=== PATIENT | female | born 1960 | race Caucasian/White ===

== ENCOUNTER 2023-06-01 21:19 | Inpatient (IN) | payer OTHER ==
[~2023-06-01] VITALS: Ht 170.2 cm; Wt 63.5 kg
[2023-06-01] MEDS ORDERED: METOPROLOL TARTRATE 5 MG/5 ML VIAL IVP ONE ×2 (21:45→21:55)
[2023-06-01] MEDS ORDERED: MAGNESIUM SULFATE 2 GM in IV DEXTROSE 5% 100 ML IV ONE (21:45)
[2023-06-01] MEDS ORDERED: METOPROLOL TARTRATE 50 MG TABLET PO ONE (21:45)
[2023-06-01] MEDS ORDERED: ASPIRIN 81 MG TAB.CHEW PO ONE (21:45)
[2023-06-01] MEDS ORDERED: HYDROMORPHONE 1 MG/1 ML DISP.SYRIN IV ONE ×2 (21:45→22:45)
[2023-06-01] MEDS ORDERED: ONDANSETRON HCL 4 MG TABLET PO ONE (21:45)
[2023-06-01] MEDS ORDERED: NITROGLYCERIN OINT 1 GM PACKET TP ONE ×2 (21:45→21:55)
[2023-06-01] MEDS ORDERED: ONDANSETRON 4 MG/2 ML VIAL ONE (21:54)
[2023-06-01] MEDS ORDERED: ASPIRIN 81 MG TAB.CHEW ONE (21:54)
[2023-06-01] MEDS ORDERED: MAGNESIUM SULFATE/D5W 200 ML ONE (21:55)
[2023-06-01] MEDS ORDERED: METOPROLOL TARTRATE 50 MG TABLET ONE (21:56)
[2023-06-01] MEDS ORDERED: HYDROMORPHONE 1 MG/1 ML DISP.SYRIN ONE ×2 (21:56→23:10)
[2023-06-01 22:03] LABS: BASOPHILS # (AUTO) 0.1 K/UL (0.0-0.2); EOSINOPHILS # (AUTO) 0.2 K/uL (0.0-0.7); EOSINOPHILS % (AUTO) 2.4 % (0.0-7.0); HEMOGLOBIN 10.7 g/dL (10.9-14.3); LYMPHOCYTES # (AUTO) 2.5 K/uL (0.8-4.8); LYMPHOCYTES % (AUTO) 31.4 % (20.5-51.5); MEAN CORPUSCULAR HEMOGLOBIN 29.7 uug (24.7-32.8); MEAN CORPUSCULAR HGB CONC 35 g/dL (32.3-35.6); MEAN CORPUSCULAR VOLUME 85.9 fL (75.5-95.3); MONOCYTES # (AUTO) 0.7 K/uL (0.1-1.30); MONOCYTES % (AUTO) 9.6 % (0.0-11.0); NEUTROPHILS # (AUTO) 4.3 K/uL (1.8-8.9); NEUTROPHILS % (AUTO) 55.6 % (38.5-71.5); PLATELET COUNT (AUTO) 405 K/uL (179-408); RED BLOOD CELL COUNT(AUTO) 3.61 MIL/uL (3.63-4.92); RED CELL DISTRIBUTION WIDTH 14.1 % (12.3-17.7); WHITE BLOOD COUNT (AUTO) 7.8 K/uL (3.8-11.8)
[2023-06-01 22:06] LABS: DIFFERENTIAL COMMENT 1
[2023-06-01 22:10] VITALS: BP 145/73
[2023-06-01 22:11] LABS: CALCIUM 9.2 mg/dL (8.5-10.1); CARBON DIOXIDE 23 mmol/L (21-32); CHLORIDE 101 mmol/L (98-107); CREATININE 1.8 mg/dL (0.6-1.3); GLUCOSE 355 mg/dL (74-106); POTASSIUM 4.6 mmol/L (3.5-5.1); SODIUM SERUM 134 mmol/L (136-145); UREA NITROGEN, BLOOD 35 mg/dL (7-18)
[2023-06-01 23:01] LABS: ALANINE AMINOTRANSFERASE 10 U/L (14-59); ALBUMIN 3.3 g/dL (3.4-5.0); ALKALINE PHOSPHATASE 81 U/L (50-136); ASPARTATE AMINOTRANSFERASE < 5 U/L (15-37); BILIRUBIN,DIRECT 0.1 mg/dL (0.0-0.2); BILIRUBIN,TOTAL 0.2 mg/dL (0.2-1.0); LIPASE 181 U/L (73-393); TOTAL PROTEIN, SERUM 6.7 g/dL (6.4-8.2)
[2023-06-02] MEDS ORDERED: BUDE10.2 IH (00:39)
[2023-06-02] MEDS ORDERED: GABA-532 PO (00:39)
[2023-06-02] MEDS ORDERED: CARV12.52 PO (00:39)
[2023-06-02] MEDS ORDERED: FURO20TA4 PO (00:39)
[2023-06-02] MEDS ORDERED: ROSU10TA2 PO (00:39)
[2023-06-02] MEDS ORDERED: ALBU6.7H9 IH (00:39)
[2023-06-02] MEDS ORDERED: DEXL60CA3 PO (00:39)
[2023-06-02] MEDS ORDERED: GLYB1TAB41 PO (00:39)
[2023-06-02] MEDS ORDERED: TICA90TA PO (00:39)
[2023-06-02] MEDS ORDERED: FENO134C PO (00:39)
[2023-06-02] MEDS ORDERED: INSU100I26 SQ (00:39)
[2023-06-02] MEDS ORDERED: LOSA100T31 PO (00:39)
[2023-06-02] MEDS ORDERED: SERT50TA PO (00:39)
[2023-06-02] MEDS ORDERED: MAGNESIUM HYDROXIDE 30 ML LIQUID UDC PO ONE (01:00)
[2023-06-02] MEDS ORDERED: MAG HYDROX/AL HYDROX/SIMETH 30 ML LIQUID UDC ONE (01:22)
[2023-06-02] MEDS ORDERED: hydrALAZINE HCL 25 MG TABLET PO PRN ×2 (06:45→08:15)
[2023-06-02] MEDS ORDERED: MORPHINE SULFATE 2 MG/1 ML DISP.SYRIN IV PRN ×2 (06:45→08:15)
[2023-06-02] MEDS ORDERED: ACETAMINOPHEN 325 MG TABLET PO PRN ×2 (06:45→13:15)
[2023-06-02] MEDS ORDERED: TEMAZEPAM 15 MG CAPSULE PO PRN ×2 (06:45→08:15)
[2023-06-02] MEDS ORDERED: MIRALAX 17 GM POWD.PACK PO PRN ×2 (06:45→08:15)
[2023-06-02] MEDS ORDERED: ONDANSETRON 4 MG/2 ML VIAL IV PRN ×2 (06:45→08:15)
[2023-06-02] MEDS ORDERED: PANTOPRAZOLE SODIUM 40 MG TABLET.DR PO SCH (07:00)
[2023-06-02 07:06] LABS: BASOPHILS # (AUTO) 0.1 K/UL (0.0-0.2); BASOPHILS % (AUTO) 0.8 % (0.0-2.0); EOSINOPHILS # (AUTO) 0.3 K/uL (0.0-0.7); EOSINOPHILS % (AUTO) 3.6 % (0.0-7.0); HEMATOCRIT 28.1 % (31.2-41.9); HEMOGLOBIN 9.8 g/dL (10.9-14.3); LYMPHOCYTES # (AUTO) 1.8 K/uL (0.8-4.8); LYMPHOCYTES % (AUTO) 23.8 % (20.5-51.5); MEAN CORPUSCULAR HEMOGLOBIN 30.2 uug (24.7-32.8); MEAN CORPUSCULAR HGB CONC 35 g/dL (32.3-35.6); MEAN CORPUSCULAR VOLUME 86.4 fL (75.5-95.3); MONOCYTES # (AUTO) 0.8 K/uL (0.1-1.30); MONOCYTES % (AUTO) 10.8 % (0.0-11.0); NEUTROPHILS # (AUTO) 4.5 K/uL (1.8-8.9); PLATELET COUNT (AUTO) 347 K/uL (179-408); RED BLOOD CELL COUNT(AUTO) 3.26 MIL/uL (3.63-4.92); WHITE BLOOD COUNT (AUTO) 7.5 K/uL (3.8-11.8)
[2023-06-02 07:30] LABS: CALCIUM 8.4 mg/dL (8.5-10.1); CREATININE 1.8 mg/dL (0.6-1.3)
[2023-06-02 07:36] LABS: BILIRUBIN,TOTAL 0.2 mg/dL (0.2-1.0); MAGNESIUM 2.5 mg/dL (1.8-2.4); PHOSPHOROUS 4.1 mg/dL (2.5-4.9); TOTAL PROTEIN, SERUM 5.8 g/dL (6.4-8.2)
[2023-06-02] MEDS ORDERED: PANTOPRAZOLE SODIUM 40 MG TABLET.DR PO ONE (08:05)
[2023-06-02 08:12] LABS: DIFFERENTIAL COMMENT 1
[2023-06-02 08:37] VITALS: O2SAT 98
[2023-06-02] MEDS ORDERED: NICOTINE 21 MG/24HR PATCH TD SCH (09:00)
[2023-06-02] MEDS ORDERED: ASPIRIN EC 81 MG TABLET.DR PO SCH (09:00)
[2023-06-02] MEDS ORDERED: ASPIRIN EC 81 MG TABLET.DR PO ONE (09:34)
[2023-06-02] MEDS ORDERED: DEXTROSE 50% 50 ML DISP.SYRIN IV PRN ×2 (11:30→11:45)
[2023-06-02] MEDS ORDERED: FENOFIBRATE NANOCRYSTALLIZED 145 MG TABLET PO SCH ×2 (11:30→14:00)
[2023-06-02] MEDS ORDERED: ALBUTEROL SULFATE 8 GM HFA.AER.AD IH PRN ×2 (11:30→11:45)
[2023-06-02] MEDS ORDERED: CARVEDILOL 12.5 MG TABLET PO SCH ×2 (11:30→18:00)
[2023-06-02] MEDS ORDERED: SERTRALINE HCL 50 MG TABLET PO SCH ×2 (11:30→14:00)
[2023-06-02] MEDS ORDERED: INSULIN REGULAR, HUMAN 300 UNIT/3 ML VIAL SQ PRN ×2 (11:30→11:45)
[2023-06-02] MEDS ORDERED: BLOOD SUGAR DIAGNOSTIC 1 EACH STRIP VI SCH ×2 (11:30→11:45)
[2023-06-02] MEDS ORDERED: GABAPENTIN 100 MG CAPSULE PO SCH ×2 (11:30→14:00)
[2023-06-02] MEDS ORDERED: LOSARTAN POTASSIUM 50 MG TABLET PO SCH ×2 (11:30→11:45)
[2023-06-02] MEDS ORDERED: glyBURIDE 5 MG TABLET PO SCH ×2 (11:30→11:45)
[2023-06-02] MEDS ORDERED: NITROGLYCERIN 0.4 MG/TAB BOTTLE SL PRN ×2 (11:30→11:45)
[2023-06-02] MEDS ORDERED: ALBUTEROL SULFATE 2.5 MG/3 ML NEBU NEB PRN (14:00)
[2023-06-02 20:09] LABS: THYROID STIMULATING HORMONE 2.957 mIU/mL (0.358-3.740)
[2023-06-02] MEDS ORDERED: ATORVASTATIN 40 MG TABLET PO SCH ×2 (21:00)
[2023-06-02] MEDS ORDERED: DOCUSATE SODIUM 250 MG CAPSULE PO SCH (21:00)
[2023-06-02] MEDS ORDERED: DOCUSATE SODIUM 100 MG CAPSULE PO SCH (21:00)
== END 2023-06-02 13:25 | disposition left against medical advice (07) | DRG 254 ==
LOC: ER 21:28 → MEDSURG3 06-02 13:12
PROVIDERS: ADMIT Internal Medicine; ATTEND Nurse Practitioner Acute Care
DX: K65.4 Sclerosing mesenteritis (principal); N17.0 Acute kidney failure with tubular necrosis; E78.5 Hyperlipidemia, unspecified; F17.210 Nicotine dependence, cigarettes, uncomplicated; D64.9 Anemia, unspecified; E11.9 Type 2 diabetes mellitus without complications; K59.00 Constipation, unspecified; I48.91 Unspecified atrial fibrillation; Z79.84 Long term (current) use of oral hypoglycemic drugs; Z79.899 Other long term (current) drug therapy; I25.10 Atherosclerotic heart disease of native coronary artery without angina pectoris; Z79.51 Long term (current) use of inhaled steroids; Z95.5 Presence of coronary angioplasty implant and graft; I10 Essential (primary) hypertension; R07.89 Other chest pain; Z53.29 Procedure and treatment not carried out because of patient's decision for other reasons
CPT/HCPCS: 36415; 71045; 83550; 83605; 83690; 83735; 84100; 84443; 84484; 85025; 93005; G0378; J1170; J2405; J3475; J3490